=== PATIENT | female | born 1970 | race African-American/Black ===

== ENCOUNTER 2016-11-25 07:08 | Inpatient (IN) ==
--- NOTE | 2016-11-24 17:09 | HISTORY AND PHYSICAL ---
PREOPERATIVE DIAGNOSES: 1. Pelvic pain. Large uterus. 2. Uterine fibroids. CONDITION: Stable. HISTORY OF PRESENT ILLNESS: Ms. Barroso is a 46-year-old, 2, para 2, who presented approximately 1 month ago with increasing pelvic pressure and abnormal bleeding. She has been known to be in in the past and she has an enlarged uterus with uterine fibroids and she desires definitive treatment at this point. PAST MEDICAL HISTORY: Significant for with an enlarged uterus and fibroids. PAST SURGICAL HISTORY: delivery x2. ALLERGIES: She has no known drug allergies. MEDICATIONS: She is on medications SOCIAL HISTORY: She denies tobacco, alcohol, or drug use. FAMILY HISTORY: Noncontributory. REVIEW OF SYSTEMS: Negative except for above. PHYSICAL EXAMINATION: VITAL SIGNS: Weight 142, height 63. Blood pressure 122/82. GENERAL: She is alert and cooperative. No distress. NECK: Supple. LUNGS: Clear. HEART: Regular sinus rhythm. ABDOMEN: Soft. Fundal height approximately 4 fingerbreadths below the umbilicus. PELVIC: Deferred. EXTREMITIES: No cyanosis, clubbing, edema in her extremities. LABORATORY: I do not have any laboratory values at this time. ASSESSMENT: As above. PLAN: Abdominal hysterectomy with bilateral salpingectomy. cc: Rahat Landeros MD
[2016-11-25] MEDS ORDERED: FENTANYL ONE (07:39)
[2016-11-25] MEDS ORDERED: VERSED ONE (07:39)
[2016-11-25] MEDS ORDERED: DIPRIVAN 1% ONE (07:39)
[2016-11-25] MEDS ORDERED: DEMEROL ONE (07:47)
[2016-11-25] MEDS ORDERED: ROBINUL ONE ×2 (07:57→09:01)
[2016-11-25] MEDS ORDERED: ZEMURON ONE (07:58)
[2016-11-25] MEDS ORDERED: PEPCID IV ONE (08:00)
[2016-11-25] MEDS ORDERED: LR 1,000 ML IV SCH ×3 (08:00→15:33)
[2016-11-25] MEDS ORDERED: KEFZOL 1 GM/D5W 1 GM/50 ML IVPB IV ONE (08:00)
[2016-11-25] MEDS ORDERED: PEPCID ONE (08:07)
[2016-11-25] MEDS ORDERED: KEFZOL 1 GM/D5W 1 GM/50 ML IVPB ONE (08:18)
[2016-11-25] MEDS ORDERED: LR 1,000 ML ONE ×2 (08:46→10:11)
[2016-11-25] MEDS ORDERED: DILAUDID ONE ×2 (08:50→10:10)
[2016-11-25] MEDS ORDERED: ZOFRAN ONE (08:56)
[2016-11-25] MEDS ORDERED: DECADRON ONE (08:56)
[2016-11-25] MEDS ORDERED: XYLOCAINE-MPF 2% ONE (08:56)
[2016-11-25 09:00] LABS: URINE MICROSCOPIC NEEDED? NO; URINE SOURCE CATH
[2016-11-25] MEDS ORDERED: NEOSTIGMINE ONE (09:01)
[2016-11-25 09:09] LABS: BILIRUBIN URINE NEGATIVE (NEGATIVE); BLOOD URINE NEGATIVE (NEGATIVE); CLARITY CLEAR (CLEAR); COLOR YELLOW; GLUCOSE URINE NEGATIVE (NEGATIVE); LEUKOCYTES URINE NEGATIVE (NEGATIVE); NITRITE URINE NEGATIVE (NEGATIVE); PROTEIN URINE NEGATIVE (NEGATIVE); UROBILINOGEN URINE NORMAL
[2016-11-25] MEDS ORDERED: TORADOL ONE (09:33)
[2016-11-25] MEDS: DEMEROL ONE ×3 (10:16→10:41)
[2016-11-25] MEDS ORDERED: ZOFRAN IV PRN ×3 (10:59→16:14)
[2016-11-25] MEDS ORDERED: ZOFRAN ODT PO PRN (10:59)
[2016-11-25] MEDS ORDERED: DEMEROL IM PRN (10:59)
[2016-11-25] MEDS ORDERED: ESTRADERM 0.05 MG/24 HR PATCH TD ONE (10:59)
[2016-11-25] MEDS ORDERED: NORCO-10 PO PRN (10:59)
[2016-11-25] MEDS ORDERED: PHENERGAN IM PRN (10:59)
[2016-11-25] MEDS ORDERED: DEMEROL PCA VIAL ONE (11:00)
[2016-11-25] MEDS ORDERED: DEMEROL PCA VIAL IV PRN ×2 (11:33→16:12)
[2016-11-25] MEDS ORDERED: SODIUM CHLORIDE 0.9% INJ PRN ×2 (11:33→16:14)
[2016-11-25] MEDS ORDERED: PHENERGAN IV PRN ×2 (11:33→16:14)
[2016-11-25] MEDS ORDERED: NARCAN IV PRN ×2 (11:33→16:13)
[2016-11-25] MEDS ORDERED: BENADRYL IV PRN ×2 (11:33→16:13)
--- NOTE | 2016-11-25 12:31 | OPERATIVE NOTE ---
PROCEDURE DATE: 11/25/2016 PREOPERATIVE DIAGNOSES: 1. Enlarged uterus. 2. Uterine fibroids. 3. Pelvic pain. POSTOPERATIVE DIAGNOSES: 1. Enlarged uterus. 2. Uterine fibroids. 3. Pelvic pain. PROCEDURE: Transabdominal hysterectomy with bilateral salpingectomy. SURGEON: Rahat Landeros MD MACHINE FORMER: Rahat Knutson MD ANESTHESIA: General endotracheal with Dr. Bowman. FINDINGS: She had a large uterus with a large posterior fibroid, some pelvic adhesions. COMPLICATIONS: None. ESTIMATED BLOOD LOSS: 75 mL. PATHOLOGY: Uterus with detached cervix and tubes. DRAINS: Valentin catheter. DESCRIPTION OF PROCEDURE: Please refer to Ms. Barroso's H P. Questions were answered. Consents were verified. She was brought to the operating room where she was placed under general endotracheal anesthesia and prepped and draped in a supine position with Valentin catheter being inserted. An incision was made over the old scar vertical down through the subcuticular tissue and fascia was nicked in the midline. Cut on the fascia was extended with the curved Aguiar scissors. The midline was identified. The muscle was pulled to the side. Peritoneum was entered bluntly and pulled to the side. A Gheens retractor was placed and the bowel was packed away. The uterus was grasped with a Nevaeh tenaculum and elevated out of the pelvis. Then using the LigaSure, the uterine ovarian and round ligament were grasped, cauterized, and cut. Then the anterior and posterior leaves of the broad ligament grasped, cauterized, and cut down to the level of the internal cervical os. Then a bladder flap was created using the pickups and Metzenbaum's sharply and then pushing the bladder down with a sponge stick. Once the uterine arteries were skeletonized, they were grasped, cauterized, and cut. Then attention was turned to the patient's left side, where the same procedure was carried out. Once the uterine arteries were grasped, cauterized, and cut the uterus fundus was amputated from the cervix. There was some bleeding from the left uterine arteries, so it was clamped and tied off with a tie. The cervical stump was grasped with the Nevaeh tenaculum and elevated up and bladder was pushed down using both sharp and blunt dissection. The cardinal ligaments were grasped with a straight clamp, pedicle was cut with a scalpel, then tied off with a 0 Polysorb. This was done down to the level of the uterosacrals at which point, they were grasped with a curved clamp and the corner of the vagina was clamped on both sides and then the cervix was detached and the cuff was closed with interrupted stitches of 0 Polysorb. Once this was done, irrigation was carried out. There was no bleeding noted. So, the tubes were elevated with a Perry and their attachments were grasped, cauterized, and cut using the LigaSure and once this was done, the retractor was removed. A sponge that had been placed into the abdomen was removed. Peritoneum was closed with 3-0 chromic. The fascia was closed with 1 Polysorb. The subcutaneous area was very thin so it was not reapproximated. Skin was reapproximated with 4-0 Biosyn in a subcuticular stitch. All counts were correct. She was taken to the recovery room in stable condition. cc: Rahat Landeros MD
[2016-11-25] MEDS: TORADOL IV SCH ×3 (14:25→21:59)
[2016-11-25] MEDS: COLACE PO SCH (20:23)
[2016-11-25] MEDS: PERIDEX MT SCH (20:23)
[2016-11-26] MEDS: TORADOL IV SCH ×3 (01:55→19:42)
[2016-11-26 05:57] LABS: MANUAL DIFF NEEDED? NO
[2016-11-26 06:04] LABS: BASO% 0.1 % (0.0-0.8); EOS# 0.03 X1000 (0.0-0.7); EOS% 0.4 % (0.0-10.0); HEMATOCRIT 32.5 % (37.0-47.0); HEMOGLOBIN 10.4 g/dL (12.0-16.0); IMM GRAN# 0.01 X1000 (0.0-0.04); IMM GRAN% 0.1 % (0.0-0.5); LYMPH# 1.28 X1000 (1.2-3.4); LYMPH% 17.8 % (20.5-51.1); MCH 27.6 PG (27-31); MCV 86.2 FL (81-99); MONO# 0.69 X1000 (0.11-0.59); MONO% 9.6 % (1.7-9.3); MPV 9.9 FL (7.4-10.4); PLT 322 X1000 (130-400); RBC 3.77 XMIL (4.2-5.4)
[2016-11-26] MEDS: PERIDEX MT SCH ×2 (09:07→22:21)
[2016-11-26] MEDS: COLACE PO SCH ×2 (09:07→22:21)
[2016-11-26] MEDS: MYLICON PO PRN (18:30)
[2016-11-27 07:21] VITALS: BP 120/70
[2016-11-27] MEDS: PERIDEX MT SCH (09:01)
[2016-11-27] MEDS: COLACE PO SCH (09:01)
[2016-11-27] MEDS: MYLICON PO PRN (09:04)
[2016-11-27] MEDS ORDERED: DULCOLAX PR PRN (09:07)
--- NOTE | 2016-11-29 17:25 | DISCHARGE SUMMARY ---
ADMISSION DATE: 11/25/2016 DISCHARGE DATE: 11/27/2016 ADMISSION DIAGNOSES: Enlarged uterus, uterine fibroids. DISCHARGE DIAGNOSES: Enlarged uterus, uterine fibroids. PROCEDURES: Abdominal hysterectomy with bilateral salpingectomy. CONDITION: Stable. DIET: As tolerated. ACTIVITY: Routine postoperative instructions. FOLLOWUP: Followup in the office in 2 weeks. Percocet or narcotic 5 mg 1-2 as needed for pain. She is to continue all of her previous home medications. HOSPITAL COURSE: Please refer to Ms. Barroso's H and P, Operative Note and Progress Notes. She was admitted and underwent abdominal hysterectomy and had done well afterwards. Currently she is postop day 2 and without complaints. Tolerating p.o. Ambulating and voiding without difficulty. Desiring discharge. PHYSICAL EXAMINATION: Vital Signs: Temp 98.9 degrees, blood pressure 120/70, pulse 76. General: She is alert and cooperative, in no distress. Pertinent examination: Her abdomen is soft and the incision is dry and intact. Extremities: No cyanosis, clubbing or edema in her extremities. LABORATORY VALUES OF SIGNIFICANCE: Hemoglobin and hematocrit of 10/32, white count of 7. DISPOSITION: We will discharge with above instructions. cc: Rahat Landeros MD
== END 2016-11-27 11:45 | disposition home or self-care (01) ==
LOC: P.WC 07:08
PROVIDERS: ADMIT Obstetrics & Gynecology; ATTEND Obstetrics & Gynecology